=== PATIENT | female | born 1970 | race Caucasian/White ===

== ENCOUNTER 2024-10-08 06:25 | Outpatient (REF) | payer BC, SELFPAY ==
--- NOTE | ~2024-10-08 | US_ITS ---
CLINICAL HISTORY: Postcoital bleeding, postmenopausal US pelvis transabdominal and transvaginal with color Doppler Comparison: None Findings: Transabdominal scanning performed for overall anatomy. Transvaginal scanning performed for additional detail. LMP: Postmenopausal Anteverted uterus, homogeneous in echotexture measuring 5.2 x 2.4 x 3.9 cm. Well defined endometrium, measuring 2.4 mm in thickness. The right ovary measures, 1.8 x 1.5 x 1.6 cm. Normal sonographic appearance right ovary. The left ovary measures, 1.8 x 1.1 x 1.9 cm. Indeterminate hypoechoic lesion within the left ovary measuring 2.4 x 1.5 x 2.4 cm. This may represent an atypical hemorrhagic cyst. No adnexal masses or fluid collections. No free fluid. Impression: 1. Postmenopausal uterine atrophy. Normal thickness endometrium. 2. Normal right ovary. 3. Indeterminate hypoechoic lesion left ovary atypical hemorrhagic cyst rather than dermoid suspected. Consider a follow-up pelvic ultrasound in 6 or 12 weeks time. This document has been electronically signed by: Romie Rosales MD on 10/10/2024 09:31:17
== END 2024-10-08 06:26 | disposition home or self-care (01) ==
LOC: HO.UMASIMG 06:25
PROVIDERS: Visit Provider Nurse Practitioner Women's Health
DX: N93.0 Postcoital and contact bleeding (principal); N95.2 Postmenopausal atrophic vaginitis
CPT/HCPCS: 76830; 76856

== ENCOUNTER → 2024-10-08 09:00 | Outpatient (BNV) | payer BC, SELFPAY | PROVIDERS: Visit Provider Radiology Diagnostic Radiology | DX: N93.8 Other specified abnormal uterine and vaginal bleeding (principal) | CPT/HCPCS: 76830; 76856 ==

== ENCOUNTER 2024-12-24 06:10 | Outpatient (REF) | payer BC, SELFPAY ==
--- NOTE | ~2024-12-24 | US_ITS ---
CLINICAL HISTORY: F U OVARIAN CYST Transabdominal and transvaginal pelvic ultrasound Comparison: No prior studies of any type Findings: Uterus 6.8 x 2.6 x 4.5 cm. Endometrium 2 mm. No significant free fluid. Right ovary 2.4 x 1.6 x 1.7 cm. Left ovary 2.6 x 1.6 x 1.5 cm. No significant focal abnormality. Impression: No significant abnormality This document has been electronically signed by: Todd Brody MD on 12/24/2024 20:10:34
--- OUTSIDE RECORDS SUMMARY | 2024-12-24 06:13 | XMS_ITS | Encounter Summary ---
Author Organization [facility] Address [address] [place] [address] Phone Care Team Providers Care Sap Enterprise Portal Consultant Name Role Phone Unknown, Unknown Primary Care Provider Aicha Kaye CNP Primary Care Provider [phone] Armando Doshi CNP Primary Care Provider + Melina Dawson DO Primary Care Provider + Melina Dawson DO Unavailable [phone] Encounter Details Date Type Department Care Team (Late st Contact Info) Description 12/30/2021 Procedure Pass [address] [place] [address] Social History Tobacco Use Types Packs/Day Years Used Date Smoking Tobacco: Never Assessed Comments No Sex and Gender Information Value Date Recorded Sex Assigned at Not on file Legal Sex Female 9:34 PM EDT Gender Identity Not on file Sexual Orientation Not on file documented as of this encounter Plan of Treatment Upcoming Encounters Date Type Department Care Team (Late st Contact Info) Description 09/09/2024 Procedure Pass [address] [place] [address] 04/18/2025 8:30 AM EST Appointment [address] [place] [address] Armando Doshi, PRINCIPAL PROCESS ENGINEER [address] [place] [address] [place] [address] [email or web address] documented as of this encounter Visit Diagnoses Not on filedocumented in this encounter Care Teams Sap Enterprise Portal Consultant Relationship Specialty Start Date End Date Unknown, Unknown, PCP - General 10/12/18 11/30/22 Aicha Dale, PRINCIPAL PROCESS ENGINEER [address] [place] [address] PCP - General Internal Medicine 12/01/22 09/17/24 Armando Doshi, DESI [address] [place] [address] [email or web address] PCP - General Nurse Practitioner 09/18/24 11/21/24 Melina Dawson DO [address] [place] [address] [email or web address] PCP - General Family Medicine 11/22/24 Melina Dawson DO [address] [place] [address] [email or web address] Insurance Assigned Provider 12/14/24 documented as of this encounter Additional Source Comments The information contained in this document represents components of the legal health record. It is not the complete legal health record.[facility]
--- OUTSIDE RECORDS SUMMARY | 2024-12-24 06:13 | XMS_ITS | Encounter Summary ---
Author Organization [facility] Address [address] [place] [address] Phone Care Team Providers Care Order Entry Representative Name Role Phone Aicha Dale CNP Primary Care Provider [phone] Armando Doshi CNP Primary Care Provider + Melina Dawson DO Primary Care Provider + Melina Dawson DO Unavailable [phone] Encounter Details Date Type Department Care Team (Late st Contact Info) Description 09/09/2024 Transcribe Orders Virtual Department [address] [place] [address] Armando Doshi CNP [address] [place] [address] [email or web address] Breast screening (Primary Dx) Social History Tobacco Use Types Packs/Day Years Used Date Smoking Tobacco: Never Assessed Education Answer Date Recorded Are you interested in more education? Not on justo e 08/05/2022 Are you concerned about learning? Not on file 08/05/2022 No 08/05/2022 No 08/05/2022 Digital Access Answer Date Recorded No 09/05/2022 No 09/05/2022 Reliable internet access at home? Not on file 09/05/2022 Device with a working camera? Not on file Comments No Sex and Gender Information Value Date Recorded Sex Assigned at Not on file Legal Sex Female 9:34 PM EDT Gender Identity Not on file Sexual Orientation Not on file documented as of this encounter Plan of Treatment Upcoming Encounters Date Type Department Care Team (Late st Contact Info) Description 09/09/2024 Procedure Pass [address] [place] [address] 04/18/2025 8:30 AM EST Appointment [address] [place] [address] Armando Doshi CNP [address] [place] [address] [email or web address] Scheduled Orders Name Type Priority Associated Diagnoses Orde r Schedule Mammogram Screening (Bilateral) Imaging Routine Breast screening Expected: 10/09/2024, Expires: 09/09/2025 documented as of this encounter Visit Diagnoses Diagnosis Breast screening- Primary Breast screening, unspecified documented in this encounter Care Teams Order Entry Representative Relationship Specialty Start Date End Date Aicha Dale CNP [address] [place] [address] [email or web address] PCP - General Internal Medicine 12/01/22 09/17/24 Armando Doshi CNP [address] [place] [address] [email or web address] PCP - General Nurse Practitioner 09/18/24 11/21/24 Melina Dawson DO [address] [place] [address] [email or web address] PCP - General Family Medicine 11/22/24 Melina Dawson DO [address] [place] [address] [email or web address] Insurance Assigned Provider 12/14/24 documented as of this encounter Additional Source Comments The information contained in this document represents components of the legal health record. It is not the complete legal health record.[facility]
--- OUTSIDE RECORDS SUMMARY | 2024-12-24 06:13 | XMS_ITS | Clinical Summary ---
Author Organization [facility] Address [address] [place] [address] Phone Care Team Providers Care Wire Stripper Name Role Phone Melina Dawson DO Primary Care Provider + Melina Dawson DO Unavailable [phone] Encounters Date Type Department Care Team Description 11/22/2024 1:34 PM EDT - 11/22/2024 11:59 PM EDT Hospital Encounter [facility] [address] [place] [address] Ashu Chavira MD Discharge Disposition: Home or Self Care from Last 3 Months Social History Tobacco Use Types Packs/Day Years Used Date Smoking Tobacco: Never Assessed Tobacco Cessation:Counseling Given: Not Answered Education Answer Date Recorded Are you interested [...] on file Sexual Orientation Not on file Plan of Treatment Upcoming Encounters Date Type Department Care Team (Late st Contact Info) Description 09/09/2024 Procedure Pass [facility] [address] [place] [address] 04/18/2025 8:30 AM EST Appointment [address] [place] [address] Armando Doshi, DINKEY OPERATOR SLAG [address] [place] [address] [place] [address] [email or web address] Medical Devices Not on file Procedures Procedure Name Priority Date/Time Associated Diagnosis Comments ANATOMIC PATHOLOGY Routine 11/22/2024 12 :00 AM EDT from Last 3 Months Results * Anatomic Pathology (11/22/2024 12:00 AM EDT) 11/22/2024 11/25/2024 9:1 1 AM EDT Narrative SEE NARRATIVE - 11/26/2024 2:52 PM EDT [address] [address] Records Assistant: Anuj Conti MD Surgical Pathology Report FINAL PATHOLOGIC DIAGNOSIS: ASCENDING COLON, POLYPS X 2: Focal adenomatous change, on additional levels. Electronically Signed Out By Anuj Conti MD By his/her signature above, the pathologist listed as making the Final Diagnosis certifies that he/she has personally reviewed this case and confirmed or corrected the diagnosis. CLINICAL HISTORY Preoperative diagnosis: Screening colonoscopy Postoperative diagnosis: Polyps, hemorrhoids SPECIMENS SUBMITTED: A: ASCENDING COLON, POLYPS X 2 GROSS DESCRIPTION ASCENDING COLON, POLYPS X 2: Received in formalin are 2 irregular mackay-pink soft tissue fragments measuring on average 0.6 x 0.4 x 0.2 cm which are submitted in toto in a single cassette labeled A1. Grossed by: ANAMARIA Madison, PA(ASCP) [id number] 11/25/2024 Grossing Staff: [id number] Patient Name: JESSICA GURROLA : 1970 (Age: 54) Sex: F Institution: [facility] Location: [facility] Date of Operation: 11/22/2024 Date of Reported: 11/26/2024 14:52 Results To: Ashu Chavira MD, BS, MS Melina Dawson DO [facility] Ashu Chavira MD PATHOLOGY ORDERABLES Final Resul t SEE NARRATIVE from Last 3 Months Insurance [facility] PPO EPO [facility] PPO EPO PPO EPO PPO EPO Care Teams Wire Stripper Relationship Specialty Start Date End Date Melina Dawson DO [address] [place] [address] [email or web address] PCP - General Family Medicine 11/22/24 Melina Dawson DO [address] [place] [address] [email or web address] Insurance Assigned Provider 12/14/24 Additional Source Comments The information contained in this document represents components of the legal health record. It is not the complete legal health record.[facility]
--- OUTSIDE RECORDS SUMMARY | 2024-12-24 06:13 | XMS_ITS | Encounter Summary ---
Author Organization [facility] Address [address] [place] [address] Phone Care Team Providers Care Manager Wind Name Role Phone Unknown, Unknown Primary Care Provider Aicha Kaye BLEACH ANALYST Primary Care Provider [phone] Armando Doshi BLEACH ANALYST Primary Care Provider + Melina Dawson DO Primary Care Provider + Melina Dawson DO Unavailable [phone] Encounter Details Date Type Department Care Team (Late st Contact Info) Description 10/02/2018 Ancillary Orders Virtual Department [address] [place] [address] Melina Dawson DO [address] [place] [address] [email or web address] Breast screening Social History Tobacco Use Types Packs/Day Years Used Date Smoking Tobacco: Never Assessed Comments Unknown Sex and Gender Information Value Date Recorded Sex Assigned at Not on file Legal Sex Female 9:34 PM EDT Gender Identity Not on file Sexual Orientation Not on file documented as of this encounter Plan of Treatment Upcoming Encounters Date Type Department Care Team (Late st Contact Info) Description 09/09/2024 Procedure Pass [address] [place] [address] 04/18/2025 8:30 AM EST Appointment [address] [place] [address] Armando Doshi, BLEACH ANALYST [address] [place] [address] documented as of this encounter Results * BI MAMMOGRAM SCREENING WITH TOMOSYNTHESIS WITH CAD (BILATERAL) (10/19/2018 12:39 PM EDT) Anatomical Region Laterality Modality Breast Left, Breast Right, Breast Bilateral Bila teral Mammography 10/19/2018 2:09 PM EDT Impressions 10/19/2018 2:13 PM EDT No mammographic signs of malignancy. Annual screening is recommended. BI-RADS CATEGORY: 1 - Negative. DENSITY: The breast tissue is extremely dense, an appearance which could obscure a lesion on mammography. POS - CDHMAMA Narrative 10/19/2018 2:13 PM EDT Bilateral mammography is performed in conjunction with computed aided detection. 3-D tomography along with 2-D C view imaging was also performed. Compared with screening mammogram 06/28/2013. No suspicious masses, areas of architectural distortion or suspicious microcalcifications. Procedure Note Stefan Peterson MD - 10/19/2018 Bilateral mammography is performed in conjunction with computed aideddetection. 3-D tomography along with 2-D C view imaging was alsoperformed. Compared with screening mammogram 06/28/2013. No suspicious masses, areas of architectural distortion or suspiciousmicrocalcifications. IMPRESSION: No mammographic signs of malignancy. Annual screening is recommended. BI-RADS CATEGORY: 1 - Negative. DENSITY: The breast tissue is extremely dense, an appearance which couldobscure a lesion on mammography. POS - CDHMAMA Melina Dawson DO IMG MG EXAMS Final Re sult documented in this encounter Visit Diagnoses Diagnosis Breast screening Breast screening, unspecified Breast screening Breast screening, unspecified documented in this encounter Care Teams Manager Wind Relationship Specialty Start Date End Date Unknown, Unknown, PCP - General 10/12/18 11/30/22 Aicha Dale, BLEACH ANALYST [address] [place] [address] [email or web address] PCP - General Internal Medicine 12/01/22 09/17/24 Armando Doshi, DESI [address] [place] [address] [email or web address] PCP - General Nurse Practitioner 09/18/24 11/21/24 Melina Dawson DO [address] [place] [address] [email or web address] PCP - General Family Medicine 11/22/24 Melina Dawson DO [address] [place] [address] [email or web address] Insurance Assigned Provider 12/14/24 documented as of this encounter Additional Source Comments The information contained in this document represents components of the legal health record. It is not the complete legal health record.[facility]
--- OUTSIDE RECORDS SUMMARY | 2024-12-24 06:13 | XMS_ITS | Encounter Summary ---
Author Organization [facility] Address [address] [place] [address] Phone Care Team Providers Care Ota Name Role Phone Unknown, Unknown Primary Care Provider Aicha Kaye CNP Primary Care Provider [phone] Armando Doshi CNP Primary Care Provider + Melina Dawson DO Primary Care Provider + Melina Dawson DO Unavailable [phone] Encounter Details Date Type Department Care Team (Late st Contact Info) Description 12/30/2021 Transcribe Orders Virtual Department [address] [place] [address] Armando Doshi CNP [address] [place] [address] [email or web address] Breast screening (Primary Dx) Social History Tobacco [...] st Contact Info) Description 09/09/2024 Procedure Pass [address] [place] [address] 04/18/2025 8:30 AM EST Appointment [address] [place] [address] Armando Doshi CNP [address] [place] [address], [place] [address] documented as of this encounter Results * BI MAMMOGRAM SCREENING WITH TOMOSYNTHESIS WITH CAD (BILATERAL) (12/01/2022 4:12 PM EDT) Anatomical Region Laterality Modality Breast Left, Breast Right, Breast Bilateral Bila teral Mammography 12/08/2022 7:12 PM EDT Impressions 12/09/2022 3:36 PM EDT No mammographic signs of malignancy. Annual screening is recommended. BI-RADS CATEGORY: 1 - Negative. DENSITY: The breast tissue is extremely dense, which lowers the sensitivity of mammography. Narrative 12/09/2022 3:36 PM EDT Bilateral mammography is performed in conjunction with computed aided detection. 3-D tomography along with 2-D C view imaging was also performed. Comparison made to previous dated as far back as 06/28/2013 and as recent as 10/19/2018. No suspicious masses, areas of architectural distortion or suspicious microcalcifications. Procedure Note Stefan Alvares MD - 12/09/2022 Bilateral mammography is performed in conjunction with computed aideddetection. 3-D tomography along with 2-D C view imaging was alsoperformed. Comparison made to previous dated as far back as 06/28/2013 andas recent as 10/19/2018. No suspicious masses, areas of architectural distortion or suspiciousmicrocalcifications. IMPRESSION: No mammographic signs of malignancy. Annual screening is recommended. BI-RADS CATEGORY: 1 - Negative. DENSITY: The breast tissue is extremely dense, which lowers thesensitivity of mammography. us Armando Doshi PROJECT PRODUCTION ENGINEER IMG MG EXAMS Final Re sult documented in this encounter Visit Diagnoses Diagnosis Breast screening- Primary Breast screening, unspecified Breast screening Breast screening, unspecified documented in this encounter Care Teams Ota Relationship Specialty Start Date End Date Unknown, Unknown, PCP - General 10/12/18 11/30/22 Aicha Dale, PROJECT PRODUCTION ENGINEER [address] [place] [address] PCP - General Internal Medicine 12/01/22 09/17/24 Armando Doshi CNP [address] [place] [address] [email or web address] PCP - General Nurse Practitioner 09/18/24 11/21/24 Melina Dawson DO [address] [place] [address] [email or web address] PCP - General Family Medicine 11/22/24 Melina Dawson DO [address] [place] [address] [email or web address] Assigned Provider 12/14/24 documented as of this encounter Additional Source Comments The information contained in this document represents components of the legal health record. It is not the complete legal health record.[facility]
== END 2024-12-24 06:11 | disposition home or self-care (01) ==
LOC: HO.UMASIMG 06:10
PROVIDERS: Visit Provider Family Medicine
DX: N95.2 Postmenopausal atrophic vaginitis (principal); N83.209 Unspecified ovarian cyst, unspecified side
CPT/HCPCS: 76830; 76856

== ENCOUNTER → 2024-12-24 08:43 | Outpatient (BNV) | payer BC, SELFPAY | PROVIDERS: Visit Provider Radiology Diagnostic Radiology | DX: Z87.42 Personal history of other diseases of the female genital tract (principal) | CPT/HCPCS: 76830; 76856 ==